=== PATIENT | female | born 1960 | race Caucasian/White ===

== ENCOUNTER → 2016-08-11 | Outpatient (CLI) | payer MEDICARE, BC ==
--- NOTE | 2016-08-12 09:47 | MM ---
Reason for exam: screening (asymptomatic). Last mammogram was performed 1 year ago. History: Patient is postmenopausal and is nulliparous. Took hormonal contraceptives for 25 years. Physical Findings: A clinical breast exam by your physician is recommended on an annual basis and results should be correlated with mammographic findings. MG 3D Screening Mammo W/Cad Bilateral CC and MLO view(s) were taken. Prior study comparison: August 13, 2015, bilateral MG 3d screening mammo w/cad. August 09, 2014, bilateral MG diagnostic mammo w CAD [facility]. February 23, 2014, right breast MG diagnostic mammo RT w CAD. The breast tissue is heterogeneously dense. This may lower the sensitivity of mammography. Finding: There are typically benign round calcifications in both breasts. There is a chronic nodularity bilaterally. There is no dominant lesion. ASSESSMENT: Benign, BI-RAD 2 RECOMMENDATION: Routine screening mammogram of both breasts in 1 year.
== END ==
LOC: RADMAMWWP 10:58
PROVIDERS: ATTEND Internal Medicine
DX: Z12.31 Encounter for screening mammogram for malignant neoplasm of breast (principal)
CPT/HCPCS: 77063; G0202

== ENCOUNTER → 2017-01-20 | Outpatient (CLI) | payer MEDICARE, BC | LOC: CPPFTMAIN 11:54 | PROVIDERS: ATTEND Internal Medicine | DX: J45.909 Unspecified asthma, uncomplicated (principal) | CPT/HCPCS: 94060; 94726; 94729 ==

== ENCOUNTER → 2017-08-26 | Outpatient (CLI) | payer MEDICARE, BC ==
--- NOTE | 2017-08-28 10:43 | MM ---
Reason for exam: screening (asymptomatic). Last mammogram was performed 1 year ago. History: Patient is postmenopausal and is nulliparous. Took hormonal contraceptives for 25 years. Physical Findings: A clinical breast exam by your physician is recommended on an annual basis and results should be correlated with mammographic findings. MG Screening Mammo w CAD Bilateral CC and MLO view(s) were taken. XCCL view(s) were taken of the right breast. Prior study comparison: August 11, 2016, bilateral MG 3d screening mammo w/cad. August 13, 2015, bilateral MG 3d screening mammo w/cad. The breast tissue is heterogeneously dense. This may lower the sensitivity of mammography. No suspicious abnormality. No significant changes when compared with prior studies. ASSESSMENT: Negative, BI-RAD 1 RECOMMENDATION: Routine screening mammogram of both breasts in 1 year.
== END | disposition home or self-care (01) ==
LOC: RADMAMWWP 15:20
PROVIDERS: ATTEND Internal Medicine
DX: Z12.31 Encounter for screening mammogram for malignant neoplasm of breast (principal)
CPT/HCPCS: 77067

== ENCOUNTER → 2017-12-17 | Outpatient (CLI) | payer BC, MEDICARE ==
[~2017-12-17] MED LIST: DENOSUMAB 60 MG/ML 1 ML SYRINGE SQ ONE
[2017-12-17 13:51] VITALS: BP 134/77; PULSE 105; RESP 17
== END | disposition home or self-care (01) ==
LOC: PROCWHC3 13:37
PROVIDERS: ATTEND Internal Medicine
DX: M81.0 Age-related osteoporosis without current pathological fracture (principal)
CPT/HCPCS: 96372; J0897

== ENCOUNTER → 2018-06-24 | Outpatient (CLI) | payer MEDICARE ==
[2018-06-24 12:36] VITALS: BP 134/77; PULSE 92; RESP 16; TEMP 98.1
== END | disposition home or self-care (01) ==
LOC: PROCWHC3 12:24
PROVIDERS: ATTEND Internal Medicine
DX: M81.0 Age-related osteoporosis without current pathological fracture (principal)
CPT/HCPCS: 96372; J0897

== ENCOUNTER → 2018-08-31 | Outpatient (CLI) | payer MEDICARE ==
--- NOTE | 2018-08-31 10:46 | MM ---
Reason for exam: screening (asymptomatic). Last mammogram was performed 1 year ago. History: Patient is postmenopausal and is nulliparous. Took hormonal contraceptives for 25 years. Physical Findings: A clinical breast exam by your physician is recommended on an annual basis and results should be correlated with mammographic findings. MG 3D Screening Mammo W/Cad Bilateral CC and MLO view(s) were taken. Prior study comparison: August 26, 2017, bilateral MG screening mammo w CAD. August 11, 2016, bilateral MG 3d screening mammo w/cad. The breast tissue is heterogeneously dense. This may lower the sensitivity of mammography. There are benign appearing round, oval, circumscribed masses waxing and waning in size over time mammographically compatible with cysts. No suspicious abnormality. No significant changes when compared with prior studies. ASSESSMENT: Benign, BI-RAD 2 RECOMMENDATION: Routine screening mammogram of both breasts in 1 year.
== END | disposition home or self-care (01) ==
LOC: RADMAMWWP 08:30
PROVIDERS: ATTEND Internal Medicine
DX: Z12.31 Encounter for screening mammogram for malignant neoplasm of breast (principal)
CPT/HCPCS: 77063; 77067

== ENCOUNTER → 2019-01-04 | Outpatient (CLI) | payer MEDICARE ==
[2019-01-04 13:34] VITALS: BP 110/71; PULSE 101; RESP 22; TEMP 98
== END ==
LOC: PROCWHC3 13:25
PROVIDERS: ATTEND Internal Medicine
DX: M81.0 Age-related osteoporosis without current pathological fracture (principal)
CPT/HCPCS: 96372

== ENCOUNTER → 2019-01-07 | Day surgery (SDC) | payer MEDICARE ==
[2019-01-04 11:45] VITALS: BMI 33.3
[~2019-01-07] MED LIST changes: -DENOSUMAB 60 MG/ML 1 ML SYRINGE SQ ONE; +LACTATED RINGERS 1,000 ML IV SCH; +LIDOCAINE 1% INJ 10MG/ML (20 ML MDV) ONE; +PROPOFOL 10 MG/ML 20 ML VIAL IV ONE
[2019-01-07 12:33] VITALS: TEMP 98.3
--- NOTE | 2019-01-07 12:54 | P.PCN ---
Date of Procedure: 01/07/19 Procedure(s) Performed: BRIEF HISTORY: Patient is a 50-year-old, pleasant, white female, scheduled for an upper endoscopy as a part of surveillance of Becker's esophagus. She has long-standing history of GERD and has been maintained on omeprazole 20 mg daily with good relief of her symptoms.. PROCEDURE PERFORMED: Esophagogastroduodenoscopy with biopsy. PREOPERATIVE DIAGNOSIS: GERD/Becker's esophagus. IV sedation per anesthesia. PROCEDURE: After informed consent was obtained, the patient was brought into the endoscopy unit. IV sedation was administered by Anesthesia under continuous monitoring. Initially the Olympus GIF-140 video endoscope was inserted into the mouth. Esophagus intubated without any difficulty. It was gradually advanced into the stomach and duodenum and carefully examined. The bulb and the second part of the duodenum appeared normal. The scope at this time was withdrawn to the stomach, adequately insufflated with air, and upon careful examination, mucosa of the antrum, body, cardia and the fundus appeared normal. The scope was then withdrawn into the esophagus. The GE junction was located at 30 cm from the incisors. On recent hiatal hernia noted. There was long segment of Becker's esophagus extending from 24-30 cm from the incisors and the mucosa appeared sm ooth with no nodules identified. Multiple biopsies were done from the segment of Becker's esophagus at every 2 cm intervals in all 4 quadrants. The rest of the esophagus appeared normal. There were no erosions or ulcerations seen and the patient tolerated the procedure well. IMPRESSION: 1. Long Segment Becker's esophagus extended from 24-30 cm from the incisors status post multiple biopsies to rule out dysplasia. 2. Moderate size hiatal hernia. RECOMMENDATIONS: The findings of this examination were discussed with the patient as her family. She will continue with omeprazole 20 mg daily and follow antireflux measures. She will follow with the biopsy results. If the biopsy shows no evidence of dysplasia, she can have a repeat upper endoscopy in 2-3 years.
[2019-01-07 12:58] VITALS: RESP 17
[2019-01-07 13:19] VITALS: BP 106/64; PULSE 66
== END | disposition home or self-care (01) ==
LOC: ORWHC2ENDO 11:39
PROVIDERS: ATTEND Internal Medicine Gastroenterology
DX: K22.70 Barrett's esophagus without dysplasia (principal); K21.9 Gastro-esophageal reflux disease without esophagitis; K31.7 Polyp of stomach and duodenum; K44.9 Diaphragmatic hernia without obstruction or gangrene; G35 Multiple sclerosis; Z79.899 Other long term (current) drug therapy; Z88.5 Allergy status to narcotic agent; Z88.2 Allergy status to sulfonamides; J45.909 Unspecified asthma, uncomplicated; Z79.51 Long term (current) use of inhaled steroids
CPT/HCPCS: 88305; 43239; J2001; J2704

== ENCOUNTER → 2019-07-06 | Outpatient (CLI) | payer MEDICARE ==
[~2019-07-06] MED LIST changes: +DENOSUMAB 60 MG/ML 1 ML SYRINGE SQ NR; -LACTATED RINGERS 1,000 ML IV SCH; -LIDOCAINE 1% INJ 10MG/ML (20 ML MDV) ONE; -PROPOFOL 10 MG/ML 20 ML VIAL IV ONE
[2019-07-06 14:18] VITALS: BP 128/57; PULSE 87; RESP 16; TEMP 98.1
== END ==
LOC: PROCWHC3 12:47
PROVIDERS: ATTEND Internal Medicine
DX: M81.0 Age-related osteoporosis without current pathological fracture (principal)
CPT/HCPCS: 96372; J0897

== ENCOUNTER → 2020-01-27 | Outpatient (CLI) | payer MEDICARE ==
--- NOTE | 2020-01-27 15:39 | MR ---
EXAMINATION TYPE: MR brain wo/w con DATE OF EXAM: 01/27/2020 COMPARISON: None HISTORY: MS, weakness right side TECHNIQUE: Multiplanar, multisequence images of the brain and brainstem is performed without and with IV contras t, utilizing 7.5 mL intravenous Gadavist . FINDINGS: There are numerous large bilateral cerebral juxtacortical, deep white matter, and periventricular T2 and T2 FLAIR hyperintense foci, many of which are perpendicular to the lateral ventricles (Garcia's f ingers). There are no actively enhancing lesions. No lesions within the cerebellum, brainstem, or vis ualized spinal cord. The optic nerves demonstrate grossly symmetric appearance with no abnormal enhan cement or edema. The globes are grossly symmetric. Diffusion weighted images demonstrate no evidence of a recent infarct or other diffusion abnormality. There is no extra-axial fluid collection The ventricular system and cisternal spaces are normal in size and appearance. The brain volume is age appropriate. Midline structures demonstrate normal morphology. The craniocervical junction appears within normal limits. The dural venous sinuses appear patent. The visualized sinuses demonstrate mucosal thickening . IMPRESSION: Numerous large bilateral cerebral T2 and T2 FLAIR hyperintense lesions, with perpendicula r periventricular demyelinating plaques characteristic of multiple sclerosis. No evidence of enhancin g lesion to suggest active demyelination.
== END | disposition home or self-care (01) ==
LOC: RADMRIMAIN 08:56
PROVIDERS: ATTEND Psychiatry & Neurology Neurology
DX: G35 Multiple sclerosis (principal)
CPT/HCPCS: 70553; A9585

== ENCOUNTER → 2020-01-31 | Outpatient (CLI) | payer MEDICARE ==
[2020-01-31 14:13] VITALS: BP 106/70; PULSE 90; RESP 16
== END | disposition home or self-care (01) ==
LOC: PROCWHC3 14:00
PROVIDERS: ATTEND Internal Medicine
DX: M81.0 Age-related osteoporosis without current pathological fracture (principal)
CPT/HCPCS: 96372; J0897

== ENCOUNTER → 2020-08-03 | Outpatient (CLI) | payer MEDICARE ==
[2020-08-03 15:00] VITALS: BP 133/79; PULSE 91; RESP 18; TEMP 98.6
== END | disposition home or self-care (01) ==
LOC: PROCWHC3 11:40
PROVIDERS: ATTEND Internal Medicine
DX: M81.0 Age-related osteoporosis without current pathological fracture (principal)
CPT/HCPCS: 96372; J0897

== ENCOUNTER → 2020-12-18 | Outpatient (CLI) | payer MEDICARE ==
--- NOTE | 2020-12-19 09:09 | MM ---
Reason for exam: screening (asymptomatic). Last mammogram was performed 2 years and 4 months ago. History: Patient is postmenopausal and is nulliparous. Took hormonal contraceptives for 25 years. Physical Findings: A clinical breast exam by your physician is recommended on an annual basis and results should be correlated with mammographic findings. MG Screening Mammo w CAD Bilateral CC and MLO view(s) were taken. Prior study comparison: August 31, 2018, bilateral MG 3d screening mammo w/cad. August 26, 2017, bilateral MG screening mammo w CAD. The breast tissue is heterogeneously dense. This may lower the sensitivity of mammography. Stable benign calcifications. There is chronic nodularity bilaterally. There is no dominant lesion. No significant changes when compared with prior studies. ASSESSMENT: Benign, BI-RAD 2 RECOMMENDATION: Routine screening mammogram of both breasts in 1 year.
== END | disposition home or self-care (01) ==
LOC: RADMAMWWP 10:59
PROVIDERS: ATTEND Family Medicine
DX: Z12.31 Encounter for screening mammogram for malignant neoplasm of breast (principal); Z78.0 Asymptomatic menopausal state
CPT/HCPCS: 77067

== ENCOUNTER → 2021-02-05 | Outpatient (CLI) | payer MEDICARE ==
[2021-02-05 13:11] VITALS: BP 117/78; PULSE 81; RESP 16; TEMP 98.2
== END ==
LOC: PROCWHC3 12:57
PROVIDERS: ATTEND Family Medicine
DX: M81.0 Age-related osteoporosis without current pathological fracture (principal); Z88.2 Allergy status to sulfonamides; Z88.5 Allergy status to narcotic agent; Z91.018 Allergy to other foods
CPT/HCPCS: 96372; J0897

== ENCOUNTER → 2021-08-13 | Outpatient (CLI) | payer MEDICARE ==
[2021-08-13 13:34] VITALS: BP 106/72; PULSE 88; RESP 16; TEMP 98.2
== END ==
LOC: PROCWHC3 13:03
PROVIDERS: ATTEND Family Medicine
DX: M81.0 Age-related osteoporosis without current pathological fracture (principal); Z91.018 Allergy to other foods; Z88.2 Allergy status to sulfonamides; Z88.5 Allergy status to narcotic agent
CPT/HCPCS: 96372; J0897

== ENCOUNTER → 2021-12-19 | Outpatient (CLI) | payer MEDICARE ==
--- NOTE | 2021-12-20 08:58 | MM ---
Reason for Exam: Screening (asymptomatic). Last screening mammogram was performed 12 month(s) ago. Patient History: Menarche at age 12. Patient has no children. Postmenopausal. Patient used Hormonal Contraceptives for 25 years. Risk Values: Brenda 5 year model risk: 1.6%. NCI Lifetime model risk: 7.9%. Prior Study Comparison: 08/26/2017 Bilateral Screening Mammogram, [facility]. 08/31/2018 Bilateral Screening Mammogram, [facility]. 12/18/2020 Bilateral Screening Mammogram, [facility]. Tissue Density: The breast tissue is heterogeneously dense. This may lower the sensitivity of mammography. Findings: Analyzed By CAD. Stable small well-defined round masses centrally in the left breast and inferiorly in the right breast favor benign thin-walled cysts. There is no suspicious group of microcalcifications or new suspicious mass in either breast. Overall Assessment: Benign, BI-RAD 2 Management: Screening Mammogram of both breasts in 1 year. A clinical breast exam by your physician is recommended on an annual basis and results should be correlated with mammographic findings. Electronically signed and approved by: Zaid Merritt M.D.
== END | disposition home or self-care (01) ==
LOC: RADMAMWWP 11:00
PROVIDERS: ATTEND Family Medicine
DX: Z12.31 Encounter for screening mammogram for malignant neoplasm of breast (principal); Z78.0 Asymptomatic menopausal state
CPT/HCPCS: 77063; 77067

== ENCOUNTER → 2022-03-14 | Outpatient (CLI) | payer MEDICARE ==
[2022-03-14 10:57] VITALS: BP 94/57; PULSE 76; RESP 16; TEMP 98.2
== END ==
LOC: PROCWHC3 10:40
PROVIDERS: ATTEND Family Medicine
DX: M81.0 Age-related osteoporosis without current pathological fracture (principal)
CPT/HCPCS: 96372; J0897

== ENCOUNTER → 2022-12-22 | Outpatient (CLI) | payer MEDICARE ==
--- NOTE | 2022-12-23 08:06 | MM ---
Reason for Exam: Screening (asymptomatic). Last screening mammogram was performed 12 month(s) ago. Patient History: Menarche at age 12. Patient has no children. Postmenopausal. Patient used Hormonal Contraceptives for 25 years. Risk Values: Brenda 5 year model risk: 1.7%. NCI Lifetime model risk: 7.7%. Prior Study Comparison: 08/31/2018 Bilateral Screening Mammogram, [facility]. 12/18/2020 Bilateral Screening Mammogram, [facility]. 12/19/2021 Bilateral MG 3D screening mammo w/cad, [facility]. Tissue Density: The breast tissue is heterogeneously dense. This may lower the sensitivity of mammography. Findings: Analyzed By CAD. Pattern appears stable. There are scattered benign calcifications present. Chronic nodularities within the left breast. No suspicious groups of microcalcifications, spiculated or lobular masses, architectural distortion or other secondary signs of malignancy are mammographically apparent. Overall Assessment: Benign, BI-RAD 2 Management: Screening Mammogram of both breasts in 1 year. A negative mammogram report should not preclude additional follow up of suspicious palpable abnormalities. Patient should continue monthly self breast exam. A clinical breast exam by your physician is recommended on an annual basis and results should be correlated with mammographic findings. Electronically signed and approved by: Tre Yip D.O. Radiologis
== END | disposition home or self-care (01) ==
LOC: RADMAMWWP 06-12 11:00
PROVIDERS: ATTEND Family Medicine
DX: Z12.31 Encounter for screening mammogram for malignant neoplasm of breast (principal); Z78.0 Asymptomatic menopausal state
CPT/HCPCS: 77063; 77067

== ENCOUNTER → 2023-02-19 | Outpatient (CLI) | payer MEDICARE ==
[2023-02-19 16:08] VITALS: BP 110/66; PULSE 93; RESP 16; TEMP 98
== END ==
LOC: PROCWHC3 13:06
PROVIDERS: ATTEND Physician Assistant
DX: M81.0 Age-related osteoporosis without current pathological fracture (principal)
CPT/HCPCS: 96372; J0897

== ENCOUNTER → 2023-11-26 | Outpatient (CLI) | payer MEDICARE ==
[2023-11-26 14:15] VITALS: BP 127/70; PULSE 70; RESP 14; TEMP 97.7
[2023-11-26] MEDS: DENOSUMAB 60 MG/ML 1 ML SYRINGE SQ NR (14:15)
== END ==
LOC: PROCWHC3 14:06
PROVIDERS: ATTEND Physician Assistant
DX: M81.0 Age-related osteoporosis without current pathological fracture (principal)
CPT/HCPCS: 96372; J0897

== ENCOUNTER → 2023-12-24 | Outpatient (CLI) | payer MEDICARE ==
--- NOTE | 2023-12-24 17:55 | MM ---
Reason for Exam: Screening (asymptomatic). Last screening mammogram was performed 12 month(s) ago. Patient History: Menarche at age 12. Patient has no children. Postmenopausal. Patient used Hormonal Contraceptives for 25 years. Risk Values: Brenda 5 year model risk: 1.7%. NCI Lifetime model risk: 7.4%. Prior Study Comparison: 12/18/2020 Bilateral Screening Mammogram, [facility]. 12/19/2021 Bilateral MG 3D screening mammo w/cad, [facility]. 12/22/2022 Bilateral MG 3D screening mammo w/cad, [facility]. Tissue Density: There are scattered areas of fibroglandular density. Findings: Analyzed By CAD. The pattern is symmetrical. Pattern appears stable. Stable nodular density within the left breast. Benign calcifications present bilaterally. No suspicious groups of microcalcifications, spiculated or lobular masses, architectural distortion or other secondary signs of malignancy are mammographically apparent. Overall Assessment: Benign, BI-RAD 2 Management: Screening Mammogram of both breasts in 1 year. A negative mammogram report should not preclude additional follow up of suspicious palpable abnormalities. Patient should continue monthly self breast exam. A clinical breast exam by your physician is recommended on an annual basis and results should be correlated with mammographic findings. Note on Brenda scores and lifetime risk: 1. A Brenda score greater than 3% is considered moderate risk. If this is the case, consider specialist referral to assess eligibility for a risk reducing agent. 2. If overall lifetime risk for the development of breast cancer is 20% or higher, the patient may qualify for future screening with alternating mammogram and breast MRI. Electronically signed and approved by: Tre Yip D.O. Radiologis
== END | disposition home or self-care (01) ==
LOC: RADMAMWWP 14:43
PROVIDERS: ATTEND Family Medicine
DX: Z12.31 Encounter for screening mammogram for malignant neoplasm of breast (principal); Z78.0 Asymptomatic menopausal state
CPT/HCPCS: 77063; 77067

== ENCOUNTER → 2024-05-30 | Outpatient (CLI) | payer MEDICARE ==
[2024-05-30] MEDS: DENOSUMAB 60 MG/ML 1 ML SYRINGE SQ NR (14:02)
[2024-05-30 14:04] VITALS: BP 136/81; PULSE 102; RESP 18; TEMP 97.9
== END ==
LOC: PROCWHC3 13:48
PROVIDERS: ATTEND Physician Assistant
DX: M81.0 Age-related osteoporosis without current pathological fracture (principal)
CPT/HCPCS: 96372; J0897

== ENCOUNTER 2024-08-05 06:23 | Day surgery (SDC) | payer MEDICARE ==
[2024-08-04 08:48] VITALS: BMI 33.1
[2024-08-05 07:06] VITALS: TEMP 97.2
[2024-08-05] MEDS: IV FLUID CONTINUATION 1,000 ML IV ONE ×2 (07:11→07:21)
[2024-08-05] MEDS: LACTATED RINGERS 1,000 ML IV SCH (07:11)
[2024-08-05] MEDS ORDERED: LIDOCAINE 1% INJ 10MG/ML (20 ML MDV) ONE (07:28)
[2024-08-05] MEDS ORDERED: PROPOFOL 10 MG/ML 20 ML VIAL IV ONE (07:28)
[2024-08-05] MEDS ORDERED: ONDANSETRON 4 MG/2 ML VIAL ONE (07:28)
--- NOTE | 2024-08-05 07:52 | P.PCN ---
Date of Procedure: 08/05/24 Procedure(s) Performed: Brief history: Patient is a pleasant 64-year-old white female scheduled for an elective upper endoscopy as well as colonoscopy as a part of evaluation of longstanding history of GERD/Becker's esophagus and screening for colon cancer. Last colonoscopy was in 2014. She is currently on omeprazole 20 mg daily. Procedure performed: Esophagogastroduodenoscopy with biopsy Colonoscopy with biopsy and snare polypectomy Preoperative diagnosis: Longstanding history of GERD/Becker's esophagus Screening for colon cancer Anesthesia: MAC Procedure: After informed consent was obtained from the patient was brought into the endoscopy unit and IV sedation was administered by anesthesia under continuous monitoring. Initially upper endoscopy was done. The Olympus GF 160 video endoscope was inserted inserted into the mouth and esophagus intubated without any difficulty and was gradually advanced into the stomach and duodenum and carefully examined. The bulb and second part of the duodenum appeared normal. The scope was then withdrawn into the stomach adequately insufflated with air and upon careful examination the antrum and body, cardia and fundus appeared normal. Polyps noted which were biopsied. The scope was then withdrawn into the esophagus. Hiatal hernia noted. The GE junction was located at 30 cm to the incisors. There was a long segment of Becker's esophagus extending from 20 to 30 cm from the incisors and multiple biopsies were done from this area. Th ere was an isolated distal esophageal ulcer at 28 cm from the incisors which were also biopsied. Rest of the esophagus appeared normal. Patient tolerated the procedure well. At this time the patient continued to remain sedation. Initial digital rectal examination was normal. Olympus CF 160 video colonoscope was then inserted into the rectum and gradually advanced to the cecum without any difficulty. Careful examination was performed as the scope was gradually being withdrawn. The prep was excellent. The cecum, 4 polyps measuring between 3 mm to 1 cm in size which were removed by biopsy and cold snare polypectomy respectively. Rest of the ascending colon, transverse colon, descending colon, sigmoid colon and rectum appeared normal. Sigmoid diverticulosis. Retroflexion was performed in the rectum and no lesions were noted. Patient tolerated the procedure well. Impression: 1. Upper endoscopy revealed: Multiple small gastric polyps Small hiatal hernia Long segment Becker's esophagus extending from 20 to 30 cm from the incisors status post multiple biopsies 6 mm isolated ulcer in the distal segment of Becker's esophagus at 28 cm from the incisors status post multiple biopsies 2. Colonoscopy revealed 4 polyps in the cecum measuring between 3 mm to 1 cm size all removed by snare polypectomy and polyp, diverticulosis. Recommendations: Findings of this examination were discussed with the patient as well as her family. She was advised to follow-up with the biopsy results. If the biopsy reveals adenoma she can have repeat colonoscopy 3 years. In regards to the B arrett's esophagus recommended that she increase her omeprazole to 20 mg twice daily and follow antireflux measures. Follow-up in the office in 2 weeks to discuss the biopsy results.
[2024-08-05] MEDS: IPRATROPIUM-ALBUTEROL 3 ML NEB INHALATION STA (08:13)
[2024-08-05 08:33] VITALS: BP 119/75; PULSE 91; RESP 18
== END 2024-08-05 08:55 | disposition home or self-care (01) ==
LOC: ORWHC2ENDO 06:23
PROVIDERS: ATTEND Internal Medicine Gastroenterology
DX: Z12.11 Encounter for screening for malignant neoplasm of colon (principal); D12.0 Benign neoplasm of cecum; K29.50 Unspecified chronic gastritis without bleeding; K31.7 Polyp of stomach and duodenum; K22.10 Ulcer of esophagus without bleeding; K57.30 Diverticulosis of large intestine without perforation or abscess without bleeding; K21.9 Gastro-esophageal reflux disease without esophagitis; K44.9 Diaphragmatic hernia without obstruction or gangrene; J45.909 Unspecified asthma, uncomplicated; F41.9 Anxiety disorder, unspecified; G35 Multiple sclerosis; Z88.2 Allergy status to sulfonamides; Z88.5 Allergy status to narcotic agent; Z79.02 Long term (current) use of antithrombotics/antiplatelets; Z79.899 Other long term (current) drug therapy
CPT/HCPCS: 88305; 45385; 43239; J2405; J2003; J2704; 45380

== ENCOUNTER → 2024-11-29 | Outpatient (CLI) | payer MEDICARE ==
[2024-11-29 14:06] VITALS: BP 107/57; PULSE 90; RESP 16; TEMP 98.2
[2024-11-29] MEDS: DENOSUMAB 60 MG/ML 1 ML SYRINGE SQ NR (14:07)
== END ==
LOC: PROCWHC3 13:34
PROVIDERS: ATTEND Physician Assistant
DX: M81.0 Age-related osteoporosis without current pathological fracture (principal)
CPT/HCPCS: 96372; J0897